=== PATIENT | female | born 1955 | race Caucasian/White ===

== ENCOUNTER 2024-09-16 14:30 | Emergency (ER) | payer MEDICARE, MEDICAID, SELFPAY ==
[2024-09-16 14:50] VITALS: BP 117/73; PULSE 74; RESP 18; TEMP 37.1; O2SAT 96; BMI 26.7
--- NOTE | 2024-09-16 16:12 | EDNOTE_ITS ---
ED Skin Abcess FB-RME/HPI General Chief complaint: Skin/Abscess/Foreign Body Stated complaint: Abscess on left leg Time Seen by Provider: 09/16/24 14:36 Arrival date/time: 09/16/24 14:30 69-year-old female presents emergency department complaints of irritation of the left inguinal area patient reports symptoms ongoing for the last couple of months patient reports approximate 2 months ago she took a course of antibiotics since then has not taken any antibiotics. Patient reports she is not sexually active and has had not had any sexual relations in the last 30 years. Patient reports no fever nausea or vomiting Limitations: no limitations Related Data Home Medications ?Medication ?Instructions ?Recorded ?Confirmed amitriptyline 100 mg tablet 200 mg PO HS 06/04/21 08/21/24 ciprofloxacin HCl 500 mg tablet 500 mg PO TID 06/04/21 06/04/21 ibuprofen 800 mg tablet (IBU) 800 mg PO Q8HR PRN Pain 06/04/21 08/21/24 bisacodyl 5 mg tablet,delayed 5 mg PO DAILY UD 08/21/24 08/21/24 release (C-Lax Laxative (bisacodyl)) cyclobenzaprine 10 mg tablet 10 mg PO BID 08/21/24 08/21/24 metoclopramide HCl 10 mg tablet 10 mg PO BID 08/21/24 08/21/24 (Reglan) Previous Rx's ?Medication ?Instructions ?Recorded hydrocodone 5 mg-acetaminophen 325 1 tab PO BID PRN pain #10 tabs 06/05/21 mg tablet clindamycin HCl 150 mg capsule 450 mg (3 x 150 mg) PO TID 7 days 09/16/24 #63 caps ibuprofen 600 mg tablet 600 mg PO Q6H #30 tabs 09/16/24 tramadol 50 mg tablet 50 mg PO BID PRN pain #6 tabs 09/16/24 Allergies Allergy/AdvReac Type Severity Reaction Status Date / Time No Known Allergies Allergy Verified 08/20/24 20:02 Review of Systems Review of Systems Systems Reviewed: All systems reviewed, normal except as documented Constitutional Constitutional: Reports system reviewed and no additional complaints, except as documented, Denies fever(s) and Denies headache(s) Eyes Eyes: Reports system reviewed and no additional complaints, except as documented and Denies blurry vision ENT Ears, Nose, Mouth, and Throat: Reports system reviewed and no additional complaints, except as documented, Denies headache(s), Denies nasal congestion and Denies nasal discharge Cardiovascular Cardiovascular: Reports system reviewed and no additional complaints, except as documented, Denies chest pain and Denies dyspnea Respiratory Respiratory: Reports system reviewed and no additional complaints, except as documented, Denies chest congestion, Denies cough and Denies dyspnea Gastrointestinal Gastrointestinal: Reports system reviewed and no additional complaints, except as documented and Denies abdominal pain Integumentary/Breasts Skin/Breast: Reports system reviewed and no additional complaints, except as documented, Reports erythema (Left inguinal region ) and Denies rash Neurologic Neurologic: Reports system reviewed and no additional complaints, except as documented, Reports as per HPI and Denies headache(s) Past Medical History Past Medical History NEUROLOGIC: Negative Neurological Disorders CARDIAC: Negative Cardiac Disorders ED Exam General Limitations: Present no limitations General appearance: Present alert and in no apparent distress Head Head exam: Present atraumatic Eye Eye exam: Present normal appearance, PERRL and EOMI ENT ENT exam: Present normal exam, normal oropharynx and mucous membranes moist Neck Neck exam: Present normal inspection, full ROM and trachea midline Chest Chest inspection: Present normal inspection and symmetric chest wall rise Respiratory Respiratory exam: Present normal lung sounds bilaterally Cardiovascular Cardiovascular exam: Present regular rate, normal rhythm and normal heart sounds Abdominal Exam Abdominal exam: Present soft and normal bowel sounds Genitals Female CloseUp: 2 1. Redness skin sores Extremities Exam Extremities exam: Present normal inspection and full ROM Back Exam Back exam: Present normal inspection and full ROM Neurological Exam Neurological exam: Present alert, oriented X3 and CN II-XII intact Psychiatric Psychiatric exam: Present normal affect and normal mood Skin Skin exam: Present warm, dry and rash Course Quality Measures none Orders Category Date Time Status Ketorolac Inj [Toradol Inj] Med 09/16/24 16:12 Discontinued 30 mg IM X1 ONE Lidocaine 1% 20 ml [Xylocaine 1% 20 ML] Med 09/16/24 16:12 Discontinued 2.1 ml INFL X1 ONE cefTRIAXone [Rocephin] Med 09/16/24 16:12 Discontinued 1,000 mg IM X1 ONE Vital Signs Vital signs: Vital Signs Temperature 98.8 F 09/16/24 14:50 Pulse Rate 74 09/16/24 14:50 Respiratory Rate 18 09/16/24 14:50 Blood Pressure 117/73 09/16/24 14:50 Pulse Oximetry (%) 96 09/16/24 14:50 Oxygen Delivery Method Room Air 09/16/24 14:50 O2 saturation 96% room air within normal limits Skin / Abscess / Foreign Body MDM Narrative MDM Narrative:: 69-year-old female presents emergency department complaints of irritation of the left inguinal area patient reports symptoms ongoing for the last couple of months patient reports approximate 2 months ago she took a course of antibiotics since then has not taken any antibiotics. Patient reports she is not sexually active and has had not had any sexual relations in the last 30 years. Patient reports no fever nausea or vomiting On exam patient has rash/redness to left inguinal area there is no involvement of the vagina Patient given Rocephin pain medication and discharged home with antibiotics Explained to the patient patient is to follow-up with dermatology for further evaluation of this area for worsening symptoms to return immediately Patient data External records reviewed:: [facility] previous records Clinical information provided by:: patient Social determinants that could affect healthcare access:: none Patient has the following chronic illnesses:: See history How is presenting disease/condition affected by chronic disease/condition?: u neffected by Evaluation data The following diagnostics were reviewed and interpreted by me:: other (specify) (N/A) Lab and/or radiology exams considered but not ordered:: Consider not ordered Interpretation Summary: N/A Medications / Prescriptions Medications or Prescriptions considered but not ordered:: Given Medication administrations:: Medication Administration History Discontinued Medications Ceftriaxone Sodium (Ceftriaxone Sod Inj 1,000 Mg Vial) 1,000 mg IM X1 ONE Stop: 09/16/24 16:13 Last Admin: 09/16/24 16:52 Dose: 1,000 mg Documented By: ISABELL Ketorolac Tromethamine (Ketorolac Inj 30 Mg/Ml Vial) 30 mg IM X1 ONE Stop: 09/16/24 16:13 Last Admin: 09/16/24 16:50 Dose: 30 mg Documented By: ISABELL Lidocaine HCl (Lidocaine Hcl 1% 20 Ml Vial) 2.1 ml INFL X1 ONE Stop: 09/16/24 16:13 Last Admin: 09/16/24 16:52 Dose: 2.1 ml Documented By: ISABELL Given Consultations Consultation(s) initiated? (list below): No Diagnosis Skin/Abscess Differential Diagnosis: abscess of skin or subcutaneous tissue, cellulitis and other (Herpes, syphilis) Most likely diagnosis given after review of the tests above:: Cellulitis Admission Indicated Admission indicated?: not indicated Admission Request Was there a request for admission?: No Disposition Plan Disposition Plan: Discharge Discharge Attestation Discharge Attestation: The patient and all family members were given an opportunity to ask questions and understood the discharge instructions. Discharge instructions specifically effects, indications for sooner follow up or return to the emergency department, and the expected course of current diagnosis. Patient condition: Stable Discharge Plan Plan Patient Disposition: HOME (Self Care) Disposition Comment: Stable Prescriptions/Referrals Prescriptions/Med Rec: New clindamycin HCl 150 mg capsule 450 mg PO TID 7 Days Qty: 63 0RF tramadol 50 mg tablet 50 mg PO BID PRN (Reason: pain) Qty: 6 0RF ibuprofen 600 mg tablet 600 mg PO Q6H Qty: 30 0RF No Action ibuprofen [IBU] 800 mg tablet 800 mg PO Q8HR PRN (Reason: Pain) Patient Comments: TAKE 1 TABLET BY MOUTH THREE TIMES A DAY ciprofloxacin HCl 500 mg tablet 500 mg PO TID amitriptyline 100 mg tablet 200 mg PO HS Patient Comments: TAKE 1 TABLET BY MOUTH EVERYDAY AT BEDTIME hydrocodone-acetaminophen 5-325 mg tablet 1 tab PO BID MDD 2 tabs per day PRN (Reason: pain) Qty: 10 0RF cyclobenzaprine 10 mg Tablet 10 mg PO BID metoclopramide HCl [Reglan] 10 mg Tablet 10 mg PO BID bisacodyl [C-Lax Laxative (bisacodyl)] 5 mg Tablet,Delayed Release (Dr/Ec) 5 mg PO DAILY UD Referrals: Terry Eaton MD [Primary Care Provider] - In 1 week Problem List Clinical Impression: Cellulitis of groin, left Patient/Caregiver Discharge Instructions Education Materials: ED Cellulitis Additional Instructions: Please follow up with your primary care doctor in the next 24-48hrs for any worsening symptoms return here immediately Please request referral from your primary care doctor for dermatology Print Language: Somali Stand Alone Forms: [employer]ika Award Info., Patient Portal Info Letter Attestation Attestation The patient was seen by the midlevel practitioner. I, the co-signing physician, was present during the entire ER visit. While I did not physically examine the patient, I was available for consultation as needed.
[2024-09-16] MEDS: KETOROLAC INJ 30 MG/ML VIAL IM (16:50)
[2024-09-16] MEDS: LIDOCAINE HCL 1% 20 ML VIAL 2.1 ML INFL (16:52)
[2024-09-16] MEDS: cefTRIAXone SOD INJ 1,000 MG VIAL 1000 MG IM (16:52)
== END 2024-09-16 16:55 | disposition home or self-care (01) ==
PROVIDERS: Emergency Provider Emergency Medicine; PCP Family Medicine
DX: L03.314 Cellulitis of groin (principal)
CPT/HCPCS: 96372; 99283; J0696; J1885; J3490

== ENCOUNTER → 2024-10-26 | Outpatient (CLI) | payer MEDICARE, MEDICAID, SELFPAY ==
[2024-10-22 12:43] LABS: Albumin, Serum 4.4 gm/dL (3.4-4.8); Anion Gap 7 (7-16); BUN/Creatinine Ratio 15 Ratio (12-20); Blood Urea Nitrogen 12 mg/dL (9-23); Calcium 9.5 mg/dL (8.3-10.6); Calcium (Corrected) 9.5 mg/dL (8.5-10.1); Carbon Dioxide 24.7 mMol/L (20.0-31.0); Chloride 108 mMol/L (98-107); Creatinine (Component) 0.8 mg/dL (0.6-1.3); Glucose 95 mg/dL (74-106); Osmolality,Calculated 279 (275-295); Phosphorous 4.2 mg/dL (2.4-5.1); Potassium 4.1 mMol/L (3.4-5.1); Sodium 140 mMol/L (136-145); eGFR > 60 See Note
--- NOTE | 2024-10-26 13:15 | XR_ITS ---
Examination: MRI of brain without intravenous contrast. MRI brain with intravenous contrast. Date and time of exam:October 26, 2024 1421 hours Comparison August 21, 2024 INDICATIONS: Frequent falls beginning August 2024 with head pain and left-sided body weakness Technique: Multiple axial and sagittal images of the brain to been obtained. Siemens high-resolution 1.52 Ramya short bore scanner utilized. Sagittal sections, T1 weighted images, TR 500, TE 14, are performed. Axial sections proton-density and T2-weighted images have been obtained. Inversion recovery axial images, TR 9260, TE 111, TR 2500. Diffusion weighted images, axial sections, TR 4800, TE 128, B value 1000. Axial sections, ADC map, TR 4800, TE 128. Axial and coronal images were also obtained post 13 cc gadolinium administered intravenously. Findings:: Enlargement of the sella turcica is not present. The optic chiasm and infundibular stalk are not remarkable. There is no localized enlargement of the medulla or olga. Fourth ventricle and cerebellar tonsils appear normal in position. No subacute area of hemorrhage density is seen. Fourth ventricle is midline. Mass in the cerebellopontine angle region is not evident. 7th and 8th nerve complexes exhibit symmetry Globes are symmetrical Orbital musculature including medial lateral rectus muscles do not exhibit abnormality Increased white matter signal is again prominent Effacement of the cortical sulcal markings is not identified. Mass effect upon the ventricular system is not identified. Diffusion-weighted images demonstrate no foci restricted diffusion Contrast images demonstrate no abnormal enhancement Impression: Negative for acute hemorrhage mass effect or midline shift No acute infarct Stable microvascular white matter change
== END | disposition home or self-care (01) ==
LOC: SMRI 10-29 10:13
PROVIDERS: PCP Family Medicine; Referring Provider Psychiatry & Neurology Neurology; Visit Provider Psychiatry & Neurology Neurology
DX: R90.82 White matter disease, unspecified (principal); I10 Essential (primary) hypertension; E78.5 Hyperlipidemia, unspecified
CPT/HCPCS: 36415; 70553; 80069; A9579